=== PATIENT | male | born 1975 | race Caucasian/White ===

== ENCOUNTER 2017-07-06 12:52 | Inpatient (IN) | payer MEDICARE, MEDICAID ==
[2017-07-06] VITALS (44 sets, daily range): BP systolic 86–137; BP diastolic 43–83; BMI 21.6
[~2017-07-06] VITALS: Ht 170.2 cm; Wt 65.1 kg
--- NOTE | ~2017-07-06 | OP ---
PATIENT NAME: DAVIDSON WHITTINGTON MEDICAL RECORD: [id number] :79 LOCATION:[facility], [place] [id number] ADMISSION DATE:07/06/17 SURGEON: RUTHANN HO MD DATE OF OPERATION: 07/07/2017 PREOPERATIVE DIAGNOSES: 1. Persistent gastrocutaneous fistula. 2. Septicemia. 3. Cellulitis of the abdominal wall. POSTOPERATIVE DIAGNOSES: 1. Persistent gastrocutaneous fistula. 2. Septicemia. 3. Cellulitis of the abdominal wall. PROCEDURE: 1. Resection of gastrocutaneous fistula. 2. Excisional debridement of abdominal wall. Dimensions of debridement, including margins, measured 7.2 x 6.8 cm and was 3.4 cm in depth. The abdominal wall debridement included skin, subcutaneous tissue, necrotic fat. This was a sharp debridement. 3. Exploratory laparotomy. OPERATIVE COURSE: The patient was conveyed to the operating room electively on 07/07/2017. General anesthesia was induced by the anesthesia staff. The abdomen was sterilely prepped and draped. Through the use of a scalpel, I excised the skin and subcutaneous tissue that was involved with cellulitis and was indurated. This was a sharp debridement. During the operation, I had to debride additional tissue back sharply until we got back to viable bleeding tissue. I then dissected down along the gastrocutaneous fistula. I incised the fascia around the gastrocutaneous fistula. I entered the peritoneal cavity bluntly. A blunt dissection was performed within the peritoneal cavity around the gastrocutaneous fistula. I freed up the stomach. I then pulled the stomach up through the fascia and then stapled across the stomach transversely with a TA 60 stapler. I then divided the stomach distal to the staple line. I then returned the stomach to the intra-abdominal compartment. I irrigated locally. Utilizing some Lomeli retractors, I explored the peritoneal cavity locally. I saw no injury to the stomach. No evidence of an intestinal injury. The fascia was closed with multiple interrupted horizontal mattress #1 Vicryls. The dimensions of debridement are included above. I then packed the wound with a moistened gauze. A sterile dressing was applied. The patient was then conveyed to the recovery room. TRANSINT:[id number] Voice Confirmation ID: [id number] DOCUMENT ID: [id number] OPERATIVE REPORT [id number] PKDAVIDSON [place], RUTHANN ZAMBRANO at 1126 CC: AMAN BOWSER MD [id number] DICTATION DATE: 08/16/17 1648 OIL DEVELOPER: 08/16/17 1710 DIS IN 07/14/[id number] [place] [address]
[2017-07-06] MEDS ORDERED: DEPAKENE 2250 MG/5 M PEG (14:08)
[2017-07-06] MEDS ORDERED: HUMULIN R100 U/ML SC (14:09)
[2017-07-06] MEDS ORDERED: KEPPRA SOLU100 MG/ML PEG (14:11)
[2017-07-06] MEDS ORDERED: ENULOSE10 G/15 ML PEG (14:16)
[2017-07-06] MEDS ORDERED: LEVEMIR100 U/M1 SC (14:17)
[2017-07-06] MEDS ORDERED: ZESTRIL10 MG PEG (14:18)
[2017-07-06] MEDS ORDERED: MAG-OXIDE400 MG PEG (14:20)
[2017-07-06] MEDS ORDERED: METOPROLOL TAR100 M1 PEG (14:21)
[2017-07-06 19:45] LABS: CREATINE KINASE 35 UL (21-232); TROPONIN-I 0.018 ng/mL (0.000-0.060)
[2017-07-06 23:38] LABS: CKMB 0.1 U/L (0.0-3.6); CREATINE KINASE 38 UL (21-232)
[2017-07-06 23:41] LABS: TROPONIN-I < 0.017 ng/mL (0.000-0.060)
[2017-07-07] VITALS (38 sets, daily range): BP systolic 96–160; BP diastolic 49–94; Ht 170.2 cm; Wt 65.1 kg
[2017-07-07 04:36] LABS: BASOPHILS 0.5 % (0-2); EOSINOPHILS 2.6 % (0-7); HEMATOCRIT 35.6 % (42.0-54.0); HEMOGLOBIN 11.4 g/dL (13.5-17.5); IMMATURE GRANULOCYTES 0.4 % (0-5); LYMPHOCYTES 29.6 % (15-50); MCV 96.7 fL (80.0-100.0); MEAN PLATELET VOLUME 10.4 fL (7.4-10.4); MONOCYTES 10.1 % (2-11); NEUTROPHILS 56.8 % (40-80); PLATELET COUNT 205 10x3/uL (130-400); RBC 3.68 10x6/uL (4.20-6.10); RDW 14.6 % (11.5-14.5); WBC 8.4 10x3/uL (4.8-10.8)
[2017-07-07 05:06] LABS: CALC OSMOLALITY 318 mosm/kg (275-300); CALCIUM 8.1 mg/dL (8.5-10.1); CARBON DIOXIDE 18.4 mmol/L (21.0-32.0); CHLORIDE - SERUM 115 mmol/L (98-107); CKMB 0.3 U/L (0.0-3.6); CREATINE KINASE 65 UL (21-232); CREATININE - SERUM 1.1 mg/dL (0.6-1.3); GLUCOSE 132 mg/dL (74-106); SODIUM 151 mmol/L (136-145); UREA NITROGEN 60 mg/dL (7-18); eGFR NON AFRICAN AMERICAN 79 mL/min (90-120)
[2017-07-07 05:11] LABS: TROPONIN-I < 0.017 ng/mL (0.000-0.060)
[2017-07-08] VITALS (24 sets, daily range): BP systolic 115–169; BP diastolic 72–98
[2017-07-08 04:34] LABS: BASOPHILS 0.2 % (0-2); EOSINOPHILS 1.4 % (0-7); HEMATOCRIT 33.6 % (42.0-54.0); HEMOGLOBIN 10.5 g/dL (13.5-17.5); IMMATURE GRANULOCYTES 0.3 % (0-5); LYMPHOCYTES 28.7 % (15-50); MCH 30.8 pg (26.0-34.0); MCHC 31.3 g/dL (31.0-37.0); MCV 98.5 fL (80.0-100.0); MEAN PLATELET VOLUME 9.9 fL (7.4-10.4); MONOCYTES 11.8 % (2-11); NEUTROPHILS 57.6 % (40-80); PLATELET COUNT 173 10x3/uL (130-400); RBC 3.41 10x6/uL (4.20-6.10); RDW 14.6 % (11.5-14.5); WBC 9.3 10x3/uL (4.8-10.8)
[2017-07-08 04:53] LABS: CALCIUM 8.3 mg/dL (8.5-10.1); CHLORIDE - SERUM 115 mmol/L (98-107); CREATININE - SERUM 0.9 mg/dL (0.6-1.3); GLUCOSE 112 mg/dL (74-106); SODIUM 152 mmol/L (136-145); VALPROIC ACID (DEPAKOTE) 46.4 ug/mL (50.0-100.0); VANCOMYCIN - TROUGH 14.6 ug/mL (10.0-20.0); eGFR NON AFRICAN AMERICAN > 90 mL/min (90-120)
[2017-07-08 05:03] LABS: CALC OSMOLALITY 306 mosm/kg (275-300); CARBON DIOXIDE 23.4 mmol/L (21.0-32.0); POTASSIUM - SERUM 4.2 mmol/L (3.5-5.1); UREA NITROGEN 24 mg/dL (7-18)
[2017-07-09] VITALS (24 sets, daily range): BP systolic 116–162; BP diastolic 68–99
[2017-07-09 04:09] LABS: BASOPHILS 0.4 % (0-2); EOSINOPHILS 2.2 % (0-7); HEMATOCRIT 31.1 % (42.0-54.0); HEMOGLOBIN 9.8 g/dL (13.5-17.5); IMMATURE GRANULOCYTES 0.1 % (0-5); LYMPHOCYTES 28.9 % (15-50); MCH 30.7 pg (26.0-34.0); MCHC 31.5 g/dL (31.0-37.0); MCV 97.5 fL (80.0-100.0); MONOCYTES 11.8 % (2-11); NEUTROPHILS 56.6 % (40-80); PLATELET COUNT 151 10x3/uL (130-400); RBC 3.19 10x6/uL (4.20-6.10); RDW 14.3 % (11.5-14.5); WBC 8.2 10x3/uL (4.8-10.8)
[2017-07-09 04:22] LABS: CALC OSMOLALITY 289 mosm/kg (275-300); CALCIUM 8.5 mg/dL (8.5-10.1); CARBON DIOXIDE 23.9 mmol/L (21.0-32.0); CHLORIDE - SERUM 111 mmol/L (98-107); CREATININE - SERUM 0.8 mg/dL (0.6-1.3); GLUCOSE 89 mg/dL (74-106); MAGNESIUM - SERUM 1.8 mg/dL (1.8-2.4); PHOSPHOROUS 2.3 mg/dL (2.5-4.9); POTASSIUM - SERUM 3.7 mmol/L (3.5-5.1); SODIUM 147 mmol/L (136-145); UREA NITROGEN 11 mg/dL (7-18); eGFR NON AFRICAN AMERICAN > 90 mL/min (90-120)
[2017-07-10] VITALS (24 sets, daily range): BP systolic 96–181; BP diastolic 58–101
[2017-07-10 03:58] LABS: BASOPHILS 0.3 % (0-2); EOSINOPHILS 2.4 % (0-7); HEMATOCRIT 28.7 % (42.0-54.0); IMMATURE GRANULOCYTES 0.1 % (0-5); LYMPHOCYTES 27.9 % (15-50); MCH 30.3 pg (26.0-34.0); MCHC 31.4 g/dL (31.0-37.0); MCV 96.6 fL (80.0-100.0); MONOCYTES 11.8 % (2-11); NEUTROPHILS 57.5 % (40-80); PLATELET COUNT 139 10x3/uL (130-400); RBC 2.97 10x6/uL (4.20-6.10); RDW 13.8 % (11.5-14.5); WBC 7.2 10x3/uL (4.8-10.8)
[2017-07-10 04:11] LABS: CALC OSMOLALITY 283 mosm/kg (275-300); CALCIUM 8.1 mg/dL (8.5-10.1); CARBON DIOXIDE 22.6 mmol/L (21.0-32.0); CHLORIDE - SERUM 108 mmol/L (98-107); CREATININE - SERUM 0.7 mg/dL (0.6-1.3); MAGNESIUM - SERUM 1.7 mg/dL (1.8-2.4); PHOSPHOROUS 2.4 mg/dL (2.5-4.9); POTASSIUM - SERUM 3.3 mmol/L (3.5-5.1); SODIUM 144 mmol/L (136-145); UREA NITROGEN 11 mg/dL (7-18); VANCOMYCIN - TROUGH 9.3 ug/mL (10.0-20.0); eGFR NON AFRICAN AMERICAN > 90 mL/min (90-120)
[2017-07-10 04:12] LABS: GLUCOSE 64 mg/dL (74-106)
[2017-07-11] VITALS (24 sets, daily range): BP systolic 124–207; BP diastolic 63–126
[2017-07-11 03:33] LABS: BASOPHILS 0.2 % (0-2); EOSINOPHILS 3.6 % (0-7); HEMATOCRIT 25.4 % (42.0-54.0); HEMOGLOBIN 8.1 g/dL (13.5-17.5); IMMATURE GRANULOCYTES 0.4 % (0-5); LYMPHOCYTES 34.3 % (15-50); MCHC 31.9 g/dL (31.0-37.0); MONOCYTES 11.4 % (2-11); NEUTROPHILS 50.1 % (40-80); RDW 13.9 % (11.5-14.5); WBC 5.5 10x3/uL (4.8-10.8)
[2017-07-11 03:42] LABS: MCV 94.1 fL (80.0-100.0); PLATELET COUNT 133 10x3/uL (130-400)
[2017-07-11 04:43] LABS: CALCIUM 8.3 mg/dL (8.5-10.1); CHLORIDE - SERUM 106 mmol/L (98-107); GLUCOSE 77 mg/dL (74-106); MAGNESIUM - SERUM 1.9 mg/dL (1.8-2.4); PHOSPHOROUS 2.7 mg/dL (2.5-4.9); SODIUM 141 mmol/L (136-145)
[2017-07-11 04:51] LABS: CALC OSMOLALITY 277 mosm/kg (275-300); CREATININE - SERUM 0.4 mg/dL (0.6-1.3); POTASSIUM - SERUM 4.4 mmol/L (3.5-5.1); UREA NITROGEN 8 mg/dL (7-18); eGFR NON AFRICAN AMERICAN > 90 mL/min (90-120)
[2017-07-12] VITALS (24 sets, daily range): BP systolic 120–181; BP diastolic 62–107
[2017-07-12 05:00] LABS: BASOPHILS 0.5 % (0-2); EOSINOPHILS 4.6 % (0-7); HEMATOCRIT 28.9 % (42.0-54.0); HEMOGLOBIN 9.4 g/dL (13.5-17.5); IMMATURE GRANULOCYTES 0.2 % (0-5); LYMPHOCYTES 25.2 % (15-50); MCH 30.3 pg (26.0-34.0); MCHC 32.5 g/dL (31.0-37.0); MCV 93.2 fL (80.0-100.0); MEAN PLATELET VOLUME 9.6 fL (7.4-10.4); MONOCYTES 12.9 % (2-11); NEUTROPHILS 56.6 % (40-80); RDW 13.7 % (11.5-14.5); WBC 6.3 10x3/uL (4.8-10.8)
[2017-07-12 05:08] LABS: PLATELET COUNT 165 10x3/uL (130-400)
[2017-07-12 05:22] LABS: ALBUMIN 2.3 g/dL (3.4-5.0); ALKALINE PHOSPHATASE 32 U/L (46-116); ALT (SGPT) 19 U/L (10-68); CALC OSMOLALITY 284 mosm/kg (275-300); CALCIUM 8.9 mg/dL (8.5-10.1); CARBON DIOXIDE 25.4 mmol/L (21.0-32.0); CHLORIDE - SERUM 108 mmol/L (98-107); GLUCOSE 99 mg/dL (74-106); MAGNESIUM - SERUM 1.7 mg/dL (1.8-2.4); PHOSPHOROUS 2.8 mg/dL (2.5-4.9); PROTEIN - SERUM 6.3 g/dL (6.4-8.2); SODIUM 144 mmol/L (136-145); UREA NITROGEN 7 mg/dL (7-18)
[2017-07-12 05:37] LABS: CREATININE - SERUM 0.6 mg/dL (0.6-1.3); POTASSIUM - SERUM 3.3 mmol/L (3.5-5.1); eGFR NON AFRICAN AMERICAN > 90 mL/min (90-120)
[2017-07-13] VITALS (24 sets, daily range): BP systolic 131–180; BP diastolic 76–109
[2017-07-13 04:38] LABS: BASOPHILS 0.4 % (0-2); EOSINOPHILS 3.8 % (0-7); HEMATOCRIT 31.4 % (42.0-54.0); HEMOGLOBIN 10.2 g/dL (13.5-17.5); IMMATURE GRANULOCYTES 0.3 % (0-5); LYMPHOCYTES 21.1 % (15-50); MCH 30.4 pg (26.0-34.0); MCHC 32.5 g/dL (31.0-37.0); MCV 93.7 fL (80.0-100.0); MEAN PLATELET VOLUME 9.6 fL (7.4-10.4); MONOCYTES 13.5 % (2-11); NEUTROPHILS 60.9 % (40-80); PLATELET COUNT 181 10x3/uL (130-400); RBC 3.35 10x6/uL (4.20-6.10); RDW 13.9 % (11.5-14.5); WBC 7.6 10x3/uL (4.8-10.8)
[2017-07-13 04:46] LABS: CALC OSMOLALITY 284 mosm/kg (275-300); CALCIUM 9.5 mg/dL (8.5-10.1); CARBON DIOXIDE 24.9 mmol/L (21.0-32.0); CHLORIDE - SERUM 106 mmol/L (98-107); CREATININE - SERUM 0.5 mg/dL (0.6-1.3); GLUCOSE 138 mg/dL (74-106); SODIUM 143 mmol/L (136-145); UREA NITROGEN 8 mg/dL (7-18); eGFR NON AFRICAN AMERICAN > 90 mL/min (90-120)
[2017-07-13 04:55] LABS: POTASSIUM - SERUM 3.8 mmol/L (3.5-5.1)
[2017-07-13 10:34] LABS: MAGNESIUM - SERUM 1.8 mg/dL (1.8-2.4); PHOSPHOROUS 2.7 mg/dL (2.5-4.9)
[2017-07-14] VITALS (14 sets, daily range): BP systolic 108–174; BP diastolic 71–96
[2017-07-14 04:31] LABS: CALC OSMOLALITY 281 mosm/kg (275-300); CALCIUM 9.2 mg/dL (8.5-10.1); CHLORIDE - SERUM 106 mmol/L (98-107); CREATININE - SERUM 0.6 mg/dL (0.6-1.3); MAGNESIUM - SERUM 1.5 mg/dL (1.8-2.4); PHOSPHOROUS 2.3 mg/dL (2.5-4.9); POTASSIUM - SERUM 3.9 mmol/L (3.5-5.1); SODIUM 140 mmol/L (136-145); UREA NITROGEN 7 mg/dL (7-18); eGFR NON AFRICAN AMERICAN > 90 mL/min (90-120)
[2017-07-14 04:39] LABS: GLUCOSE 192 mg/dL (74-106)
== END 2017-07-14 15:31 | disposition short-term general hospital (02) | DRG 853 ==
LOC: D.ICU 12:52
PROVIDERS: Family Medicine; Internal Medicine Nephrology; Surgery
PROC: 0WBF0ZZ Excision of Abdominal Wall, Open Approach (ICD-10-PCS; 2017-07-07)
PROC: 0JB80ZZ Excision of Abdomen Subcutaneous Tissue and Fascia, Open Approach (ICD-10-PCS; principal; 2017-07-07 12:35)
PROC: 02HV33Z Insertion of Infusion Device into Superior Vena Cava, Percutaneous Approach (ICD-10-PCS; 2017-07-12)
PROC: 3E0436Z Introduction of Nutritional Substance into Central Vein, Percutaneous Approach (ICD-10-PCS; 2017-07-12)
DX: A41.9 Sepsis, unspecified organism (principal); R57.1 Hypovolemic shock; K94.23 Gastrostomy malfunction; G81.94 Hemiplegia, unspecified affecting left nondominant side; L03.311 Cellulitis of abdominal wall; N17.9 Acute kidney failure, unspecified; I95.9 Hypotension, unspecified; E87.5 Hyperkalemia; G40.909 Epilepsy, unspecified, not intractable, without status epilepticus; Y84.8 Other medical procedures as the cause of abnormal reaction of the patient, or of later complication, without mention of misadventure at the time of the procedure; R62.50 Unspecified lack of expected normal physiological development in childhood; E11.9 Type 2 diabetes mellitus without complications; K21.9 Gastro-esophageal reflux disease without esophagitis